=== PATIENT | male | born 1995 | race Caucasian/White ===

== ENCOUNTER 2020-09-21 21:50 | Emergency (ER) | payer SELFPAY ==
[~2020-09-21] VITALS: Ht 180.3 cm; Wt 81.6 kg
[2020-09-21 21:53] VITALS: BP_SYST 145
--- NOTE | 2020-09-21 21:53 | NUR ---
Patient to ER chair fernandez way to gown for evaluation. Side rails up.
--- NOTE | 2020-09-21 22:17 | NUR ---
ER at bedside examining patient.
--- NOTE | 2020-09-21 22:22 | NUR ---
Patient given written and verbal discharge instructions and verbalizes understanding. ER MD discussed with patient the results and treatment provided. Patient in stable condition. ID arm band removed. NORx of given. Patient educated on pain management and to follow up with PMD. Pain Scale 0/10. Opportunity for questions provided and answered. Medication side effect fact sheet provided.
== END 2020-09-21 22:22 | disposition home or self-care (01) ==
LOC: SED 21:50
DX: R11.10 Vomiting, unspecified (principal); F17.210 Nicotine dependence, cigarettes, uncomplicated; Z71.6 Tobacco abuse counseling; V49.9XXA Car occupant (driver) (passenger) injured in unspecified traffic accident, initial encounter; Y93.89 Activity, other specified; Y92.89 Other specified places as the place of occurrence of the external cause; Y99.8 Other external cause status
CPT/HCPCS: 99283